=== PATIENT | female | born 1960 | race Caucasian/White ===

== ENCOUNTER 2024-05-18 20:13 | Emergency (ER) | payer MEDICARE, OTHER, SELFPAY ==
[2024-05-18 20:14] VITALS: BP 153/98
[2024-05-18 20:32] LABS: % Basophils 0.5 % (0-2); % Eosinophils 0.2 % (0-6); % Immature Granulocytes 0.4 % (0-0.5); % Lymphocytes 5.3 % (20.5-51.1); % Monocytes 7.6 % (1.7-9.3); Absolute Basophils 0.1 10^3/uL (0-0.2); Absolute Immature Granulocytes 0.1 10^3/uL (0-0.05); Absolute Lymphocytes 0.7 10^3/uL (1.2-3.4); Hematocrit 44.2 % (37.0-47.0); Hemoglobin 15.3 g/dL (12.0-16.0); Mean Corp Hgb Conc. 34.6 g/dL (33.0-37.0); Mean Corpuscular Hgb 32.7 pg (27.0-31.0); Mean Corpuscular Volume 94.4 fL (81.0-99.0); Mean Platelet Volume 10.5 fL (7.4-10.4); Nucleated Red Blood Cells % 0 %; Platelet Count 247 10^3/uL (130-400); Red Blood Cell Count 4.68 10^6/uL (4.20-5.40); Red Cell Dist. Width 12.4 % (11.5-14.5); White Blood Cell Count 12.7 10^3/uL (4.8-10.8)
[2024-05-18 20:54] LABS: ALT (SGPT) 24 U/L (0-35); AST (SGOT) 21 U/L (14-36); Albumin 4.5 g/dl (3.5-5.0); Alkaline Phosphatase 88 U/L (38-126); Blood Urea Nitrogen 15 mg/dl (7-17); Calcium 9.9 mg/dl (8.4-10.2); Carbon Dioxide 24 mmol/L (22-30); Chloride 103 mmol/L (98-107); Glucose 123 mg/dl (70-99); Lipase 78 U/L (23-300); Potassium 4.1 mmol/L (3.5-5.1); Sodium 139 mmol/L (135-145); Total Protein 7.2 g/dl (6.3-8.2); eGFR > 60.00
--- NOTE | 2024-05-18 21:28 | ED.GENMED ---
History of Present Illness
General
Chief Complaint: Abdominal Pain
Time Seen by Provider: 05/18/24 21:28
History of Present Illness
History of Present Illness:
HPI: Patient presents with left-sided lower abdominal discomfort over the last few days. It occasionally radiates towards the other side and to the back. In the past, she was told based on colonoscopy that she has had diverticulosis. She has
never had a bout of diverticulitis in the past.
EXAM:
GENERAL: Well appearing in no distress
HEENT: Moist oral mucosa
CARDIOVASCULAR: No murmurs, normal heart rate, regular rhythm, No chest wall tenderness
PULMONARY: No respiratory distress, breath sounds are clear and equal
ABDOMEN: Soft with no peritoneal signs, moderate left lower quadrant tenderness
NEUROLOGIC: Excellent strength all extremities, no coordination deficits
PSYCHIATRIC: Appropriate mental status, normal insight and judgement
EXTREMITIES: Nontender, no edema, moves all extremities equally
SKIN: No rash, no lesions
TIME OF INITIAL ENCOUNTER: 9:40 PM
NUMBER AND COMPLEXITY OF PROBLEMS ADDRESSED AT THE ENCOUNTER
� Chronic conditions affecting care: High blood pressure, diverticulosis, has had sciatica and kidney stones
� Acute Exacerbation and/or Progression of Chronic Illness: This is an acute problem
� Differential Diagnosis includes: Diverticulitis, kidney stones, viral syndrome
AMOUNT AND/OR COMPLEXITY OF DATA TO BE REVIEWED AND ANALYZED
� I performed an independent evaluation of and my interpretation is:
EKG:
CT: CT imaging shows diverticulitis�personally reviewed
X-rays:
Laboratory Studies: White count 12.7, hemoglobin normal at 15.3, chemistries unremarkable including normal LFTs and lipase
Other:
� Review of other/old records: The patient had a colonoscopy in 2021 that showed diverticulosis in the sigmoid
� Clinical information was obtained by an independent historian: I spoke to at bedside
� Prescriptions/Medications Considered but not given:
� Further testing considered but not performed:
RISK OF COMPLICATIONS AND/OR MORBIDITY OR MORTALITY OF PATIENT MANAGEMENT
� Social determinants of health affecting care: Lives at home
� Discussion with other providers:
� Escalation of care including admission/observation vs risk of discharge considered: Mild leukocytosis with mild to moderate left lower quadrant tenderness without rebound. Will obtain CT imaging for further evaluation. CT
imaging personally reviewed and does show diverticulitis. The patient appears very well. Will start Augmentin.
Past History
Past History
ED Past Medical History: Other (kidney stones, sciatica.)
ED Past Surgical History: None
Social History
Tobacco: Non-smoker
Personal:
Living: with family
Phy Exam
Physical Exam
Physical Exam:
See HPI
Course
Orders/Labs/Results
Orders:
Orders
05/18/24 20:24
Complete Blood Count/With Diff Urgent
05/18/24 20:25
Comprehensive Metabolic Panel Urgent
Lipase Urgent
05/18/24 21:28
CT Abd/pelvis W Iv Cont Urgent
Comment:
Reason For Exam: LLQ pain
05/18/24 21:31
0.9% Sodium Chloride 1000 ml [Nss] 1,000 ml IV BOLUS
Ondansetron Injectable [Zofran] 4 mg IV NOW STA
05/18/24 21:41
Urinalysis Reflex To Culture Urgent
Date Specimen was Collected: 05/18/24
Time Specimen was Collected: 20:17
Urine Microscopic Reflex Cult Urgent
05/18/24 22:57
Amoxicillin 875 mg/Clav 125 mg [Augmentin 875 mg/125 mg] 1 tablet PO NOW STA
Abnormal Lab Results
05/18/24 05/18/24 05/18/24
20:24 20:25 21:41
WBC 12.7 H 10^3/uL
(4.8-10.8)
MCH 32.7 H pg
(27.0-31.0)
MPV 10.5 H fL
(7.4-10.4)
Abs Immat Gran (auto) 0.1 H 10^3/uL
(0-0.05)
Absolute Neuts (auto) 11.0 H 10^3/uL
(1.4-6.5)
Absolute Lymphs (auto) 0.7 L 10^3/uL
(1.2-3.4)
Absolute Monos (auto) 1.0 H 10^3/uL
(0.1-0.6)
Neutrophils % 86.0 H %
(42.2-75.2)
Lymphocytes % 5.3 L %
(20.5-51.1)
Glucose 123 H mg/dl
(70-99)
Urine Ketones 1+ A
(Negative)
Ur Occult Blood Reflex Trace A
(Negative)
Urine Bacteria (Reflex) Few A
(Negative)
05/18/24 20:24
05/18/24 20:25
Vital Signs
Initial and Last Documented VS:
Initial Vital Signs
Temp Pulse Resp BP Pulse Ox
98.7 F 117 16 153/98 99
05/18/24 20:14 05/18/24 20:14 05/18/24 20:14 05/18/24 20:14 05/18/24 20:14
Last Documented Vital Signs
Temp Pulse Resp BP Pulse Ox
98.7 F 117 20 153/98 99
05/18/24 20:14 05/18/24 20:14 05/18/24 22:00 05/18/24 20:14 05/18/24 20:14
*Critical Care Note
Total Time (30-74mins, 75-104mins- exclusive of procedures): Not Applicable
ED Attending Note
-
Portions of this chart may have been created with voice recognition software.� Occasional wrong word or��sound alike� substitutions may have occurred due to the inherent limitations of voice recognition software.
Discharge Plan
Departure
Patient Disposition: Home (Routine Discharge)
Date of Disposition: 05/18/24
Time of Disposition: 22:58
Patient with high blood pressure during this ER visit?: Yes
Discharge Problem:
Diverticulitis
Instructions: Diverticulitis (DC)
Prescriptions:
New
amoxicillin-pot clavulanate 875-125 mg tablet
1 tab PO BID Qty: 14 0RF
ondansetron HCl 4 mg tablet
4 mg PO Q6H PRN (Reason: nausea and vomiting) Qty: 14 0RF
No Action
tamsulosin 0.4 MG capsule
0.4 mg PO DAILY Qty: 7 1RF
oxycodone-acetaminophen 5 MG/325 MG tablet
1 tab PO Q4HPRN PRN (Reason: pain) Qty: 12 0RF
Referrals:
Lanny Abad PA-C [Family Provider] -
Aracely Vargas MD [Active] - Follow up in 1 week
Activity Restrictions/Additional Instructions:
Your white blood cell count is slightly high at 12.7 and CAT scan does show signs of diverticulitis at the sigmoid colon. There does not appear to be any complication. There is no sign of urinary tract infection but there is some suggestion of
dehydration based on the urinalysis. You were given IV fluids tonight. Follow-up with GI. Return
Interventions
Interventions:
*Risk Screen - Suicide Last Done: 05/18/24 21:49
*General Assessment Last Done: 05/18/24 20:14
*Neglect/Abuse Screening Last Done: 05/18/24 21:49
ED- Fall Risk Assessment Last Done: 05/18/24 21:49
*ED COVID-19 Vaccine History Last Done: 05/18/24 20:14
*Nursing Disposition Last Done: 05/18/24 23:05
GY-Usbliu-Uulwxrevld Assessment Last Done: 05/18/24 21:49
Discharge Date and Time
Discharge Date/Time: 05/18/24 23:05
Print Language: UKRAINIAN
[2024-05-18] MEDS: NSS 1000 IV (21:39)
[2024-05-18] MEDS: ZOFRAN 4 MG IV (21:39)
[2024-05-18 22:34] LABS: Urine Albumin Negative (Neg - Trace); Urine Bilirubin Negative (Negative); Urine Character Clear (Clear); Urine Color Yellow; Urine Glucose Negative (Negative); Urine Ketone 1+ (Negative); Urine Leukocyte Negative (Negative); Urine Nitrite Negative (Negative); Urine Occult Blood Trace (Negative); Urine Specific Gravity 1.005 (<1.030); Urine Urobilinogen Negative (Neg - 1+)
[2024-05-18 22:42] LABS: Urine Bacteria Few (Negative); Urine Red Blood Cell 0-2 /HPF (0-2); Urine Squamous Cell 0-2 /LPF (Few); Urine White Cell 0-2 /HPF (0-5)
[2024-05-18] MEDS: AUGMENTIN 875 MG/125 MG 1 TABLET PO (23:03)
== END 2024-05-18 23:05 | disposition home or self-care (01) ==
LOC: EMR 20:13
PROVIDERS: Emergency Medicine; EMERGENCY PHYSICIAN Emergency Medicine; FAMILY PHYSICIAN Physician Assistant Medical
DX: K57.32 Diverticulitis of large intestine without perforation or abscess without bleeding (principal); R03.0 Elevated blood-pressure reading, without diagnosis of hypertension
CPT/HCPCS: 99285; 96374; 96361; 74177; 80053; 81003; 81015; 83690; 85025; Q9967

== ENCOUNTER → 2024-07-06 06:40 | Outpatient (REF) | payer MEDICARE, OTHER, SELFPAY | LOC: MRI 3T 06:40 | PROVIDERS: ATTENDING PHYSICIAN Specialist; FAMILY PHYSICIAN Physician Assistant Medical | DX: M25.561 Pain in right knee (principal); M17.11 Unilateral primary osteoarthritis, right knee | CPT/HCPCS: 73721 ==

== ENCOUNTER → 2024-09-16 06:44 | Outpatient (REF) | payer MEDICARE, OTHER, SELFPAY | LOC: HWWDC 06:44 | PROVIDERS: ATTENDING PHYSICIAN Obstetrics & Gynecology Gynecology; FAMILY PHYSICIAN Physician Assistant Medical | DX: Z12.31 Encounter for screening mammogram for malignant neoplasm of breast (principal) | CPT/HCPCS: 77063; 77067 ==